=== PATIENT | female | born 1940 | race Caucasian/White ===

== ENCOUNTER 2017-04-03 16:09 | Inpatient (IN) | payer MEDICARE ==
[~2017-04-03] VITALS: Ht 162.5 cm; Wt 91.6 kg
--- NOTE | ~2017-04-03 | PR ---
[place], [place] PROGRESS NOTE NAME: LEATHA CELAYA [facility] #: [id number] UNIT #: [id number] ROOM: 506 DOCTOR: LOBO NATION DPM BIRTHDATE: [birth year] DOS: 04/05/2017 SUBJECTIVE: The patient was seen for followup of eschar at the distal left hallux. The patient is having no acute pain at this time. OBJECTIVE: Pedal pulses palpable, but diminished. There is mild edema bilateral lower extremity. There is a dry eschar at the distal left hallux. No signs of underlying abscess, no proximal cellulitis, no fluctuance noted. Results of the radiographs of the left foot were negative. Arterial vascular studies were performed, but results still pending. ASSESSMENT: Ulceration with eschar distal left hallux. PLAN: Evaluation and management. The patient was being discharged today. The patient will follow in my office on Sunday for reevaluation of the wound. They are to apply Betadine dressing daily. We will obtain vascular studies later today and set up a vascular consultation on an outpatient needed if warranted. We will monitor the toe closely to ascertain if any surgical intervention is needed or further testing such as an MRI, but again at this time due to negative radiographs, no signs of acute foreign body on the radiographs, no signs of acute abscess, we can treat the patient conservatively at this time. Again, if the patient needs vascular surgery consultation after obtaining the vascular studies that will be set up on an outpatient basis and the patient will be seen on Sunday at the office. LOBO NATION DPM CM:PNTRANS [id number] LOBO NATION DPM 04/05/17 1312 interface
--- NOTE | ~2017-04-03 | CON ---
[place], [place] REPORT OF CONSULTATION NAME: [facility] [id number] UNIT #: [id number] ROOM: 506 DOCTOR: PANKAJ MURRAY III, DPM BIRTHDATE: [birth year] DOS: 04/04/2017 CHIEF COMPLAINT: Left great toe wound. HISTORY OF PRESENT ILLNESS: This is a 77-year-old female who relates that she had a trauma to the left great toe involving a possible puncture from a dirty nail 5 days ago. She relates some mildly increased redness as well as some darkening to the skin to the left great toe. Her daughter has been applying Silvadene as well as has been cleaning the wound. They presented to the hospital after it failed to improve with local wound care. It does not appear that any vascular studies or x-rays have been ordered at this time. The patient does have a history of urinary tract infection as well as chronic kidney disease. The patient does relate diabetes, but denies recent smoking history. MEDICATIONS: Please refer to medication list. LABORATORY DATA: White blood cell count 12.0, hemoglobin 9.9, hematocrit 31.8, platelets 340. Creatinine of 2.2, glucose of 132. PHYSICAL EXAMINATION: VASCULAR: DP and PT pulses are slightly palpable. CFT is within normal limits, except to the left great toe. EXTREMITIES: The patient has +1 pitting edema to bilateral lower extremities. DERMATOLOGY: The patient has a dry eschar appreciated to the distal aspect of her left great toe. The nail appears to be intact. There are no signs of cellulitis tracking proximally. There is some mild linsey-eschar erythema. No pus drainage is noted. No areas of fluctuance are noted. NEUROLOGY: Decreased protective sensation. ORTHOPEDICS: Muscle strength is maintained. Negative Homans'. Negative calf pain. ASSESSMENT: 1. Peripheral arterial disease. 2. Puncture wound, left great toe. 3. Dry gangrene, left great toe. TREATMENT PLANS AND RECOMMENDATIONS: Findings as well as prognosis discussed in detail with the patient. All questions were answered to her apparent satisfaction. This is a 77-year-old female seen at bedside for evaluation regarding left great toe wound. The patient relates a history of trauma to the left great toe involving a possible nail from a nail board. Clinically, the patient has some dry gangrene as well as some mild erythema; however, no pus or fluctuance is noted. We will start with some baseline x-rays as well as vascular studies for further assessment. The patient may require surgical debridement as well as Vascular Surgery consult. The patient notes understanding. [place], [place] REPORT OF CONSULTATION NAME: LEATHA CELAYA UNIT #: [id number] ROOM: [facility] DOCTOR: PANKAJ MURRAY III, DPM BIRTHDATE: [birth year] PANKAJ MURRAY III, DPM CM:CONSTR:REPORT OF CONSULTATION 1234 04/04/17 1523 interface
--- NOTE | ~2017-04-03 | DS ---
[place], [place] DISCHARGE SUMMARY NAME: LEATHA CELAYA [facility] #: [id number] UNIT #: [id number] ROOM: 506 DOCTOR: ARISTEO WILD MD BIRTHDATE: [birth year] DOS: 04/05/2017 DISCHARGE DIAGNOSES: 1. The patient with dry gangrene at the tip of the great toe of the left foot and spreading cellulitis after she ran her wheelchair over her foot, improved with treatment. 2. Chronic urine retention with bilateral hydronephrosis and hydroureter with recurrent urinary tract infections. 3. Paraplegia. 4. Lumbar spinal stenosis. 5. Deep vein thrombosis with inferior vena cava filter placement. 6. Benign essential hypertension. 7. Type 2 diabetes mellitus, uncontrolled. 8. Nephrolithiasis status post ureteral stent placement. 9. Breast cancer status post mastectomy. 10. Obesity. The patient came in a week after she ran over her toes with a wheelchair. She had gangrene at the tips, left more than the right big toe and she had severe cellulitis spreading from her left toe up her foot and to the leg with redness, swelling and pain. The patient admitted to [place] [facility] and treated with IV Zosyn and the infection resolved very quickly. The patient was seen by Dr. Sanchez, the foot doctor who agreed with the treatment. I also consulted infectious disease specialist to follow the patient. The patient appears to have achieved maximum benefit from this admission and after clearance from the foot doctor and infectious disease specialist, she can be discharged to home and follow up with me in less than a week. 1. Chronic urinary retention, ureteral stent placement, bilateral hydronephrosis and hydroureters managed by urology. The patient is end-stage and has chronic recurrent urine infections which are treated with antibiotics on regular basis. 2. Stage IV chronic kidney disease, diabetic nephropathy and obstructive nephropathy, being treated and followed. 3. Uncontrolled type 2 diabetes mellitus, obesity and poor compliance with diet. I will continue her treatment with insulin. 4. Spina stenosis, paraplegia and generalized weakness. The patient mostly stays in a wheelchair. LABORATORY DATA: CBC showed slight leukocytosis 12,000, hemoglobin 9.9. She has anemia of chronic disease. BUN and creatinine was 35 and 2.2. DISCHARGE MANAGEMENT: Zoloft 50 mg a day; omeprazole 20 mg a day; Levemir insulin 35 units subQ; Zofran p.r.n.; metoprolol 100 mg b.i.d.; gabapentin 300 mg t.i.d.; Colace 200 mg at bedtime; Augmentin 875 mg twice a day for a week, follow up in less than a week; Xanax 0.5 mg t.i.d. p.r.n. for anxiety; captopril 50 mg 3 times a day. [place], [place] DISCHARGE [id number] UN[facility] #: [id number] ROOM: [facility] DOCTOR: ARISTEO WILD MD BIRTHDATE: [birth year] ARISTEO WILD MD CM:KYLE [id number] ARISTEO WILD MD 04/05/17 1330 interface
--- NOTE | ~2017-04-03 | WRIGHTHP ---
[place], [place] PATIENT HISTORY AND PHYSICAL EXAM NAME: LEATHA CELAYA [facility] #: [id number] UNIT #: [id number] ROOM: 506 DOCTOR: ARISTEO WILD MD BIRTHDATE: [birth year] DOS: 04/03/2017 HISTORY OF PRESENT ILLNESS: The patient with a past medical history of: 1. Chronic urinary retention with bilateral hydronephrosis and hydroureter and recurrent urinary infections. 2. History of paraplegia. 3. Spinal stenosis of the lumbar spine. 4. History of deep venous thrombosis with inferior vena cava filter placement. 5. Benign essential hypertension. 6. Type 2 diabetes mellitus, uncontrolled. 7. History of nephrolithiasis, status post stent placement. 8. History of breast cancer, status post mastectomy. 9. Obesity. The patient apparently rolled her wheelchair over her toes of both feet 1 week back, which resulted in blackening of the tip of the big toes and now she has increasing redness and pain progressing from her toes going into her foot and upper leg for 1 week now. No chest pain. No increasing shortness of breath. No other GI or urinary symptoms except for chronic urinary retention. REVIEW OF SYSTEMS: LUNGS: No increasing shortness of breath or wheezing. GASTROINTESTINAL: No nausea, vomiting, diarrhea, constipation. CARDIOVASCULAR: No chest pain or palpitations. HOME MEDICATIONS: The patient takes antibiotics 1 week at a time, Zoloft 50 mg a day, omeprazole 20 mg a day, Levemir insulin 35 units subQ daily, Zofran p.r.n., metoprolol, gabapentin, Colace, lisinopril and Xanax. The patient has history if side effects from morphine causing nausea and vomiting. FAMILY HISTORY: Noncontributory. SOCIAL HISTORY: Denies smoking cigarettes, alcohol and drug abuse. PHYSICAL EXAMINATION: GENERAL: Alert and oriented x 3, in no visible distress, obese. HEENT AND NECK: Extraocular movements are intact. Sclerae are anicteric. Oral mucosa is moist and clean. No obvious facial weakness. Neck is supple without any lymphadenopathy. No thyromegaly. No JVD. No carotid arterial bruits. LUNGS: Clear to auscultation. No wheezing. No rhonchi. CARDIOVASCULAR SYSTEM: Heart rate is regular in rate and rhythm. S1 and S2 normally audible. No significant murmur or any other abnormal cardiac sounds. ABDOMEN: Soft, nontender. No obvious organomegaly. Bowel sounds are present. No obvious herniation. LOWER EXTREMITIES: Generalized weakness with patient having 1 cm blackened area at the tip of the left great toe and redness and swelling progressing from the toe end into the foot and ankle and leg with small blackened area at the tip of the right toe. [place], [place] PATIENT HISTORY AND PHYSICAL EXAM NAME: [facility] [id number] UNIT #: [id number] ROOM: [facility] DOCTOR: ARISTEO WILD MD BIRTHDATE: [birth year] CENTRAL NERVOUS SYSTEM: Alert and oriented x 3. Cranial nerves II-XII are intact. Speech is normal. The patient is able to move all extremities. Normal muscle strength. Deep tendon reflexes are equal on both sides. Plantars were downgoing. IMPRESSION AND PLAN: 1. The patient with diabetic foot ulcer and progressive cellulitis in left lower extremity after injury when she ran over her foot with wheelchair, progressive for 1 week. The patient admitted to [facility] and is being treated with IV Zosyn. I will obtain Infectious disease specialist consult for optimal treatment, considering that she is a diabetic. orientation and mobility specialist, Dr. Perdomo is not available and I have consulted Podiatry group of Dr. Arias to follow her. If she needs surgical debridement. The patient's redness and swelling in her leg has started improving. 2. Uncontrolled type 2 diabetes mellitus. I will continue insulin, check her sugars and treat accordingly and keep her on non-concentrated sweet diet. 3. Major depression, recurrent, mild, treated and controlled with Zoloft. 4. The patient has bilateral hydronephrosis and hydroureter with chronic urine retention, treated and controlled. The patient has end-stage kidney disease. 5. The patient has stage IV chronic kidney disease and diabetic nephropathy. 6. Benign essential hypertension, treated and controlled and followed. ARISTEO WILD MD CM:HISPHYS:PATIENT HISTORY AND PHYSICAL EXAMINATION 36 [phone] ARISTEO WILD MD 04/04/171956 interface
[~2017-04-03 16:09] MED LIST: AUGMENTIN125 MG/5 M PO; BACTRIM DS 8001 TA1 PO; BETHANECHOL CHL50 MG PO; CAPOTEN50 MG PO; CIPRO250 MG PO; CIPRO500 MG PO; CIPROFLOXACIN500 MG PO; DIFLUCAN100 MG PO; DIFLUCAN150 MG PO; FLORASTOR250 MG PO; GABAPENTIN300 MG PO; LANTUS100 U/ML SC; LEVAQUIN250 MG PO; LEVOFLOXACIN500 MG PO; MACROBID100 M1 PO; METOPROLOL SUC100 MG PO; NOVOLOG1 UNIT/0.0 SC; Nystatin Cream15 GM PO; PERCOCET 325 MG1 TA5 PO; PRILOSEC20 MG PO; SUMYCIN,ACHROM500 M1 PO; TRAMADOL HCL50 MG PO; XANAX0.25 MG PO; ZOFRAN4 MG PO; ZOLOFT50 MG PO; [UNRECOGNIZED DRUG - OTHER] OP
[2017-04-03 16:40] VITALS: BP 162/76; BP 164/56
[2017-04-03] MEDS ORDERED: COLACE100 MG PO (17:23)
[2017-04-03] MEDS ORDERED: ZOFRAN8 M1 PO (17:25)
[2017-04-04] VITALS: BP 159/62
[2017-04-04 07:09] LABS: BASO # 0.1 10*3/uL (0.0-0.1); BASO % 0.5 % (0.0-1.0); EOS # 0.5 10*3/uL (0.0-0.4); EOS % 4.4 % (1.0-4.0); HEMATOCRIT 31.8 % (37.0-47.0); HEMOGLOBIN 9.9 g/dl (12.0-16.0); IG # 0.1 10*3/uL (0.0-0.1); LYMPH # 2.2 10*3/uL (1.3-4.4); LYMPH % 18.5 % (27.0-41.0); MEAN CELL VOLUME 82.2 fl (81.0-99.0); MEAN CORPUSCULAR HGB 25.6 pg (27.0-31.0); MEAN CORPUSCULAR HGB CONC 31.1 g/dl (33.0-37.0); MEAN PLATELET VOLUME 9.9 fl (9.6-12.3); MONO # 0.7 10*3/uL (0.1-1.0); MONO % 5.6 % (3.0-9.0); NEUT # 8.4 10*3/uL (2.3-7.9); NEUT % 70.6 % (47.0-73.0); PLATELET COUNT AUTOMATED 340 10*3/uL (130-400); RED BLOOD COUNT 3.87 10*6/uL (4.10-5.10); RED CELL DISTRI WIDTH 14.6 % (0-14.5)
[2017-04-04 07:34] LABS: POTASSIUM 4.8 mmol/L (3.5-5.1)
[2017-04-04 08:00] VITALS: BP 145/55
[2017-04-04 16:35] VITALS: BP 159/62
[2017-04-05] VITALS: BP 154/62
[2017-04-05 08:00] VITALS: BP 153/53
[2017-04-05] MEDS ORDERED: AUGMENTIN 875-875 MG PO (12:44)
== END 2017-04-05 13:52 | disposition home or self-care (01) | DRG 299 ==
LOC: 5E 16:09
PROVIDERS: Internal Medicine
DX: E11.52 Type 2 diabetes mellitus with diabetic peripheral angiopathy with gangrene (principal); N18.6 End stage renal disease; G82.20 Paraplegia, unspecified; I12.0 Hypertensive chronic kidney disease with stage 5 chronic kidney disease or end stage renal disease; N39.0 Urinary tract infection, site not specified; N13.6 Pyonephrosis; L03.116 Cellulitis of left lower limb; F33.0 Major depressive disorder, recurrent, mild; E11.65 Type 2 diabetes mellitus with hyperglycemia; E11.22 Type 2 diabetes mellitus with diabetic chronic kidney disease; R33.9 Retention of urine, unspecified; M48.06 Spinal stenosis, lumbar region; E66.9 Obesity, unspecified; Z96.0 Presence of urogenital implants; E11.621 Type 2 diabetes mellitus with foot ulcer; L97.529 Non-pressure chronic ulcer of other part of left foot with unspecified severity; Z99.3 Dependence on wheelchair; Z90.10 Acquired absence of unspecified breast and nipple; Z85.3 Personal history of malignant neoplasm of breast; Z68.34 Body mass index [BMI] 34.0-34.9, adult; Z86.718 Personal history of other venous thrombosis and embolism

== ENCOUNTER → 2017-05-11 | Outpatient (CLI) | payer MEDICARE ==
[~2017-05-11] MED LIST changes: +AUGMENTIN 875-875 MG PO; +COLACE100 MG PO; +ZOFRAN8 M1 PO
--- NOTE | ~2017-05-11 | PR ---
[place], [place] PROGRESS NOTE NAME: LEATHA CELAYA [facility] #: [id number] UNIT #: [id number] ROOM: DOCTOR: SUZANNA MARRUFOKRISTENLindsey BIRTHDATE: [birth year] DOS: 05/11/2017 SUBJECTIVE: This is a new patient seen at [place]. The patient had been seen at [facility] where she was hospitalized for gangrenous left great toe. The patient has an end-stage renal failure. She is a diabetic. When she is seen in [place], it was for end-stage kidney disease as well as gangrene of the left toe. She had vascular interventional consultation with Dr. Ruiz. At that time, because of her creatinine clearance and the frail state of her kidney, she was unable to have the arteriogram, but it was thought that the patient had a blockage to the lower extremity and question of 50-70% stenosis. The patient subsequently was discharged and then admitted to [place]. She was seen on the floor by Dr. Musa Arias and she has also been seen by Dr. Arias in his private office. The patient continues to have problems with the gangrenous toe. Dr. Arias has been in contact with her primary care physician who is reluctant to have her readmitted. Dr. Arias believes that any amputation of the great toe was needed at some level, but without the ability to heal and questionable blood flow, he is not certain what the best way to progress is and asked that I can see her as a second opinion to see if there is other modalities we can use at the wound center to allow and increase her healing. Upon physical exam, it is noted that the left great toe has a gangrenous area that starts from the interphalangeal joint distally. Circumferential measurement of this area is 5 cm x 10 cm x 0.6 cm. There is exposed distal phalanx with much gangrenous changes and foul odor. No purulent discharge noted from this area. There was erythema that extends to the mid foot on the great toe. The patient is currently on oral Augmentin. IMPRESSION: Grade 5 diabetic ulceration, left great toe with gangrene and most likely osteomyelitis and severe peripheral arterial disease. PLAN: 1. Evaluate. 2. As far as bandages go, we will use Betadine daily and a dry dressing to keep this area dry and stable. I will set up for the patient to see Dr. Daley, Infectious Disease to see if IV antibiotics would be helpful to help clear what is most probable osteomyelitis and gangrene. Also, recommend patient get a second opinion with Dr. Woods in [place] as far as vascular intervention. I also will start the patient's workup with hyperbaric in order to see if we can help with the osteomyelitis and gangrenous changes. Once I get all of these consults in place, we will get the ball rolling. I did speak with Dr. Daley. I have a message out with Dr. Woods and I did speak with Dr. Arias. I would like to see the patient back next week for followup of these complaints. [place], [place] PROGRESS NOTE NAME: LEATHA CELAYA UNIT #: [id number] ROOM: DOCTOR: JOSEFINA BRISENO DPM BIRTHDATE: [birth year] JOSEFINA BRISENO DPM CM:PNTRANS [id number] JOSEFINA BRISENO DPM 05/12/17 0942 interface
== END | disposition home or self-care (01) ==
LOC: WOUNDCARE 00:26
DX: E11.621 Type 2 diabetes mellitus with foot ulcer (principal); I70.25 Atherosclerosis of native arteries of other extremities with ulceration; L97.514 Non-pressure chronic ulcer of other part of right foot with necrosis of bone; L97.521 Non-pressure chronic ulcer of other part of left foot limited to breakdown of skin; E11.52 Type 2 diabetes mellitus with diabetic peripheral angiopathy with gangrene; E11.22 Type 2 diabetes mellitus with diabetic chronic kidney disease; N18.6 End stage renal disease

== ENCOUNTER → 2017-05-25 | Day surgery (SDC) | payer MEDICARE ==
[~2017-05-25] VITALS: Ht 162.5 cm; Wt 89.4 kg
[~2017-05-25] MED LIST changes: +BACTRIM 400-801 EACH PO; +LANTUS SOL100 UNIT/1 SC
--- NOTE | ~2017-05-25 | O ---
[place], [place] OPERATIVE NOTE NAME: LEATHA CELAYA UNIT #: [id number] ROOM: DOCTOR: JOSEFINA BRISENO DPM BIRTHDATE: [birth year] DOS: 05/25/2017 PREOPERATIVE DIAGNOSIS: Gangrenous left great toe. POSTOPERATIVE DIAGNOSIS: Gangrenous left great toe. PROCEDURE: Amputation of left great toe. Monitored anesthesia care, no hemostasis used. No complications. SPECIMEN: Left great toe and culture and sensitivity post-lavage. COMPLICATIONS OF SURGERY: None. BLEEDING: Less than 5 mL. DESCRIPTION OF PROCEDURE: The patient was taken to the OR and placed on the operating room table in the supine position. At this time, a local block around the great toe was then performed with 10 mL of 1% lidocaine plain and 0.5% Marcaine plain in a 50:50 mix. Monitored anesthesia care was established and the area was prepped and draped in the usual sterile manner. A double elliptical skin incision was planned along the metatarsophalangeal joint region. This area was incised and there was bleeding noted, but it was not excessive. The incision was carried down through to deep tissue layers to bone. The left great toe was disarticulated at the metatarsophalangeal joint and the entire digit was passed from the surgical site for gross pathological examination. The area was inspected and any other nonviable tissue was removed. Once this wound was felt to be free of any devitalized or infected tissue, pulse lavage was used to copiously flush and irrigate the wound. Once this was performed, a culture and sensitivity was obtained. The wound was then partially closed with 4-0 Prolene. Plain Nu Gauze packing was placed centrally into the wound to act as an area for drainage. A dry sterile dressing consisting of Adaptic, ABDs, Kerlix and Coban was then applied. The patient is to keep this dressing on, clean, dry and intact. The patient was then moved from the operating room into the PACU with vital signs stable and vascular status intact. After a brief period of postoperative , patient will be discharged home. I will see the patient in [facility]. [place], [place] OPERATIVE NOTE NAME: LEATHA CELAYA UNIT #: [id number] ROOM: DOCTOR: JOSEFINA BRISENO DPM BIRTHDATE: [birth year] JOSEFINA BRISENO DPM CM:OPRECORD:OPERATIVE NOTE [id number] JOSEFINA BRISENO DPM 05/25/17 1353 interface
[2017-05-25 12:10] VITALS: BP 169/64
[2017-05-25 13:20] VITALS: BP 136/49
[2017-05-25 13:35] VITALS: BP 155/53
[2017-05-25 13:50] VITALS: BP 175/64
[2017-05-25 14:05] VITALS: BP 176/58
== END | disposition home or self-care (01) ==
LOC: SDC 05-23 10:00
DX: E11.52 Type 2 diabetes mellitus with diabetic peripheral angiopathy with gangrene (principal); Z79.4 Long term (current) use of insulin; Z79.84 Long term (current) use of oral hypoglycemic drugs; E11.22 Type 2 diabetes mellitus with diabetic chronic kidney disease; N18.9 Chronic kidney disease, unspecified; I12.9 Hypertensive chronic kidney disease with stage 1 through stage 4 chronic kidney disease, or unspecified chronic kidney disease; K21.9 Gastro-esophageal reflux disease without esophagitis; F41.9 Anxiety disorder, unspecified; F32.9 Major depressive disorder, single episode, unspecified; E11.40 Type 2 diabetes mellitus with diabetic neuropathy, unspecified; Z86.718 Personal history of other venous thrombosis and embolism; Z86.14 Personal history of Methicillin resistant Staphylococcus aureus infection; Z90.710 Acquired absence of both cervix and uterus; Z90.49 Acquired absence of other specified parts of digestive tract; Z98.890 Other specified postprocedural states; Z80.9 Family history of malignant neoplasm, unspecified; Z82.49 Family history of ischemic heart disease and other diseases of the circulatory system; Z83.3 Family history of diabetes mellitus; Z87.891 Personal history of nicotine dependence

== ENCOUNTER → 2017-06-01 | Outpatient (CLI) | payer MEDICARE | END | disposition home or self-care (01) | LOC: WOUNDCARE 02:10 | DX: T87.89 Other complications of amputation stump (principal); E11.621 Type 2 diabetes mellitus with foot ulcer; I70.25 Atherosclerosis of native arteries of other extremities with ulceration; L97.514 Non-pressure chronic ulcer of other part of right foot with necrosis of bone; L97.521 Non-pressure chronic ulcer of other part of left foot limited to breakdown of skin; I10 Essential (primary) hypertension; Z85.3 Personal history of malignant neoplasm of breast; Z87.891 Personal history of nicotine dependence; Z98.62 Peripheral vascular angioplasty status; Y83.5 Amputation of limb(s) as the cause of abnormal reaction of the patient, or of later complication, without mention of misadventure at the time of the procedure ==

== ENCOUNTER → 2017-06-07 | Outpatient (CLI) | payer MEDICARE | END | disposition home or self-care (01) | LOC: WOUNDCARE 10:14 | DX: T87.89 Other complications of amputation stump (principal); E11.621 Type 2 diabetes mellitus with foot ulcer; I70.25 Atherosclerosis of native arteries of other extremities with ulceration; L97.521 Non-pressure chronic ulcer of other part of left foot limited to breakdown of skin; L97.514 Non-pressure chronic ulcer of other part of right foot with necrosis of bone; E11.51 Type 2 diabetes mellitus with diabetic peripheral angiopathy without gangrene; Z85.3 Personal history of malignant neoplasm of breast; Z87.891 Personal history of nicotine dependence; Z98.62 Peripheral vascular angioplasty status; Y83.5 Amputation of limb(s) as the cause of abnormal reaction of the patient, or of later complication, without mention of misadventure at the time of the procedure ==

== ENCOUNTER → 2017-06-08 | Outpatient (CLI) | payer MEDICARE | END | disposition home or self-care (01) | LOC: WOUNDCARE 01:41 | DX: T87.89 Other complications of amputation stump (principal); E11.621 Type 2 diabetes mellitus with foot ulcer; L97.521 Non-pressure chronic ulcer of other part of left foot limited to breakdown of skin; I10 Essential (primary) hypertension; Z85.3 Personal history of malignant neoplasm of breast; Z87.891 Personal history of nicotine dependence; Z98.62 Peripheral vascular angioplasty status; Y83.5 Amputation of limb(s) as the cause of abnormal reaction of the patient, or of later complication, without mention of misadventure at the time of the procedure ==

== ENCOUNTER → 2017-06-13 | Outpatient (CLI) | payer MEDICARE | END | disposition home or self-care (01) | LOC: WOUNDCARE 01:08 | DX: E11.621 Type 2 diabetes mellitus with foot ulcer (principal); L97.524 Non-pressure chronic ulcer of other part of left foot with necrosis of bone; I10 Essential (primary) hypertension; Z85.3 Personal history of malignant neoplasm of breast; Z87.891 Personal history of nicotine dependence ==

== ENCOUNTER → 2017-06-21 | Outpatient (CLI) | payer MEDICARE | END | disposition home or self-care (01) | LOC: WOUNDCARE 00:52 | DX: E11.621 Type 2 diabetes mellitus with foot ulcer (principal); L97.521 Non-pressure chronic ulcer of other part of left foot limited to breakdown of skin; I10 Essential (primary) hypertension; Z85.3 Personal history of malignant neoplasm of breast; Z87.891 Personal history of nicotine dependence ==

== ENCOUNTER → 2017-07-04 | Outpatient (CLI) | payer MEDICARE | END | disposition home or self-care (01) | LOC: WOUNDCARE 04:36 | DX: E11.621 Type 2 diabetes mellitus with foot ulcer (principal); L97.521 Non-pressure chronic ulcer of other part of left foot limited to breakdown of skin; I10 Essential (primary) hypertension; Z85.3 Personal history of malignant neoplasm of breast; Z87.891 Personal history of nicotine dependence ==

== ENCOUNTER → 2017-07-11 | Outpatient (CLI) | payer MEDICARE | END | disposition home or self-care (01) | LOC: WOUNDCARE 03:29 | DX: E11.621 Type 2 diabetes mellitus with foot ulcer (principal); L97.521 Non-pressure chronic ulcer of other part of left foot limited to breakdown of skin; I70.25 Atherosclerosis of native arteries of other extremities with ulceration; I10 Essential (primary) hypertension; Z85.3 Personal history of malignant neoplasm of breast; Z87.891 Personal history of nicotine dependence ==

== ENCOUNTER → 2017-07-18 | Outpatient (CLI) | payer MEDICARE | END | disposition home or self-care (01) | LOC: WOUNDCARE 04:26 | DX: E11.621 Type 2 diabetes mellitus with foot ulcer (principal); L97.521 Non-pressure chronic ulcer of other part of left foot limited to breakdown of skin; L97.411 Non-pressure chronic ulcer of right heel and midfoot limited to breakdown of skin; L89.891 Pressure ulcer of other site, stage 1; L89.619 Pressure ulcer of right heel, unspecified stage; Z85.3 Personal history of malignant neoplasm of breast; Z87.891 Personal history of nicotine dependence ==

== ENCOUNTER → 2017-07-25 | Outpatient (CLI) | payer MEDICARE | LOC: WOUNDCARE 10:41 | DX: E11.621 Type 2 diabetes mellitus with foot ulcer (principal); L97.521 Non-pressure chronic ulcer of other part of left foot limited to breakdown of skin; L89.619 Pressure ulcer of right heel, unspecified stage; L89.891 Pressure ulcer of other site, stage 1; I10 Essential (primary) hypertension; Z85.3 Personal history of malignant neoplasm of breast; Z87.891 Personal history of nicotine dependence ==

== ENCOUNTER → 2017-08-01 | Outpatient (CLI) | payer MEDICARE | LOC: WOUNDCARE 02:17 | DX: E11.621 Type 2 diabetes mellitus with foot ulcer (principal); L97.521 Non-pressure chronic ulcer of other part of left foot limited to breakdown of skin; L89.891 Pressure ulcer of other site, stage 1; L89.619 Pressure ulcer of right heel, unspecified stage; I10 Essential (primary) hypertension; Z85.3 Personal history of malignant neoplasm of breast; Z87.891 Personal history of nicotine dependence ==

== ENCOUNTER → 2017-08-10 | Outpatient (CLI) | payer MEDICARE | END | disposition home or self-care (01) | LOC: WOUNDCARE 02:14 | DX: E11.621 Type 2 diabetes mellitus with foot ulcer (principal); L97.514 Non-pressure chronic ulcer of other part of right foot with necrosis of bone; L97.521 Non-pressure chronic ulcer of other part of left foot limited to breakdown of skin; L97.411 Non-pressure chronic ulcer of right heel and midfoot limited to breakdown of skin; L89.619 Pressure ulcer of right heel, unspecified stage; L89.891 Pressure ulcer of other site, stage 1; I10 Essential (primary) hypertension; Z85.3 Personal history of malignant neoplasm of breast; Z87.891 Personal history of nicotine dependence ==

== ENCOUNTER → 2017-08-15 | Outpatient (CLI) | payer MEDICARE | END | disposition home or self-care (01) | LOC: WOUNDCARE 02:25 | DX: E11.621 Type 2 diabetes mellitus with foot ulcer (principal); L97.521 Non-pressure chronic ulcer of other part of left foot limited to breakdown of skin; L89.619 Pressure ulcer of right heel, unspecified stage; L89.891 Pressure ulcer of other site, stage 1; I10 Essential (primary) hypertension; Z85.3 Personal history of malignant neoplasm of breast; Z87.891 Personal history of nicotine dependence ==

== ENCOUNTER → 2017-08-22 | Outpatient (CLI) | payer MEDICARE | END | disposition home or self-care (01) | LOC: WOUNDCARE 01:53 | DX: E11.621 Type 2 diabetes mellitus with foot ulcer (principal); L97.521 Non-pressure chronic ulcer of other part of left foot limited to breakdown of skin; L97.514 Non-pressure chronic ulcer of other part of right foot with necrosis of bone; I10 Essential (primary) hypertension; Z87.891 Personal history of nicotine dependence; Z85.3 Personal history of malignant neoplasm of breast ==

== ENCOUNTER → 2017-08-29 | Outpatient (CLI) | payer MEDICARE | END | disposition home or self-care (01) | LOC: WOUNDCARE 01:27 | DX: E11.621 Type 2 diabetes mellitus with foot ulcer (principal); L97.521 Non-pressure chronic ulcer of other part of left foot limited to breakdown of skin; I10 Essential (primary) hypertension; Z85.3 Personal history of malignant neoplasm of breast; Z87.891 Personal history of nicotine dependence ==

== ENCOUNTER 2017-09-12 11:14 | Emergency (ER) | payer MEDICARE ==
[~2017-09-12] VITALS: Ht 162.5 cm; Wt 86.2 kg
[2017-09-12 11:23] VITALS: BP 144/47
== END 2017-09-12 12:19 | disposition short-term general hospital (02) ==
LOC: EDSTATUS 11:14 → ED 11:14
DX: L97.513 Non-pressure chronic ulcer of other part of right foot with necrosis of muscle (principal); N18.9 Chronic kidney disease, unspecified; Z90.710 Acquired absence of both cervix and uterus; Z90.49 Acquired absence of other specified parts of digestive tract; Z98.890 Other specified postprocedural states; Z79.4 Long term (current) use of insulin; Z79.899 Other long term (current) drug therapy; Z88.5 Allergy status to narcotic agent

== ENCOUNTER → 2017-09-12 | Outpatient (CLI) | payer MEDICARE | END | disposition home or self-care (01) | LOC: WOUNDCARE 00:01 | DX: E11.621 Type 2 diabetes mellitus with foot ulcer (principal); L97.524 Non-pressure chronic ulcer of other part of left foot with necrosis of bone; I70.25 Atherosclerosis of native arteries of other extremities with ulceration; I10 Essential (primary) hypertension; Z87.891 Personal history of nicotine dependence; Z85.3 Personal history of malignant neoplasm of breast ==